=== PATIENT | male | born 2000 | race Caucasian/White ===

== ENCOUNTER 2025-03-04 14:41 | Emergency (ER) | payer OTHER, SELFPAY ==
[2025-03-04 14:55] VITALS: BP 127/73; PULSE 97; RESP 20; TEMP 37.7; O2SAT 97
--- NOTE | 2025-03-04 15:01 | ED.GENADULT ---
HPI - General Adult General Chief complaint: Nausea/Vomiting/Diarrhea Stated complaint: Vomiting/Diarrhea/Fever/Back Pain Time Seen by Provider: 03/04/25 15:04 Source: patient, RN notes reviewed and old records reviewed Mode of arrival: ambulatory Limitations: no limitations History of Present Illness HPI narrative: 25 year old male presents to [facility] care accompanied by mother with complaints of awakening this afternoon and having lower abdominal pain and he had to abruptly vomit. He reports that he has vomited x5 times and has had diarrhea stools X3. He states that he ate at [employer] last night and then went to his job and worked midnight shift.Patient has taken some Pepto Bismol for his symptoms and reports that last incidenc of vomiting was at 132. Patient has diffuse pain across his lower abdomen with some increased pain in right lower quadrant on exam with hyperactive bowel sounds noted in all quadrants. Advised patient that he should go to ED for further evaluation of abdominal pain and refuses to go, states pain is dull and achy and he thinks he just has food poisioning or some gastric bug. Patient did sign papabdiel AMA against going to ED. MD complaint: nausea vomiting and diarrhea and abdominal pain Onset (ago): day(s) (today this afternoon) Location: abdomen Severity scale (1-10): 5 Quality: aching Pain Consistency: intermittent Associated symptoms: fever/chills, malaise, nausea/vomiting and other (diarrhea) Treatments prior to arrival: other (Pepto Bismol) Related Data Allergies Allergy/AdvReac Type Severity Reaction Status Date / Time No Known Allergies Allergy Verified 03/04/25 15:09 Review of Systems Review of Systems: CONSTITUTIONAL: Reports fever, chills, or sweats. EYES: Denies visual changes, redness, or discharge. ENT: Denies rhinorrhea, congestion, sore throat, or otalgia. CARDIOVASCULAR: Denies chest pain, palpitations, or edema. RESPIRATORY: Denies cough or dyspnea. GASTROINTESTINAL: reports diffuse lower abdominal pain,nausea, vomiting, or diarrhea. GENITOURINARY: Denies dysuria or hematuria. SKIN: Denies rash or itching. MUSCULOSKELETAL: Denies back pain, joint pain, or myalgia. NEUROLOGIC: Denies headache, numbness, or weakness. PSYCHIATRIC: Denies anxiety or depression. All systems reviewed & are unremarkable except as noted in HPI and below PMFSH Social History Social History (Updated 03/05/25 @ 22:44 by Terri Green APRN) Smoking status: Never smoker Alcohol intake: current Alcohol use details: social Substance use type: does not use Living arrangements: with family Gender identity (if verbalized by the patient): Male Comments At time of signature, agree with nursing past medical, surgical, social and family history. There is no relevant family history pertinent to the presenting complaint Exam Narrative: GENERAL: Ill-appearing, well-nourished, obese,and in some acute distress. HEAD: Normocephalic, atraumatic. EYES: PERRLA and EOMI. ENT: Nares clear, no rhinorrhea or epistaxis. Mucous membranes moist.TM's normal throat pink without exudates NECK: Supple.no lymphadenopathy CHEST: Clear to auscultation. No respiratory distress.SAO2 97% on room air HEART: Regular rate and rhythm. No murmur heard. Normal peripheral pulses. ABDOMEN: Soft, tender across lower abdomen with some noted increased tenderness to right lower abdomen on examination no rebound, nondistended, hyperactive bowel sounds in all quadrants nause vomiting and diarrhea with some temperature elevation noted. of 37.7C. EXTREMITIES: Normal range of motion. No edema. SKIN: Warm, dry, no rash. NEURO: No focal deficits. Alert and oriented x3. Course Course Level of Care: Express Care Visit Vital Signs Vital signs: Vital Signs Temperature 37.7 C H 03/04/25 14:55 Pulse Rate 97 03/04/25 14:55 Respiratory Rate 20 03/04/25 14:55 Blood Pressure 127/73 03/04/25 14:55 Pulse Oximetry 97 03/04/25 14:55 Oxygen Delivery Room Air 03/04/25 14:55 Temperature 37.7 C H 03/04/25 14:55 Pulse Rate 97 03/04/25 14:55 Respiratory Rate 20 03/04/25 14:55 Blood Pressure 127/73 03/04/25 14:55 Pulse Oximetry 97 03/04/25 14:55 Oxygen Delivery Room Air 03/04/25 14:55 reviewed MDM MDM Narrative Medical decision making narrative: Patient has diffuse lower abdominal pain with some increased tenderness to right lower quadrant patient and mother advised to go to ED for further evaluation and patient refuses to go at this time,did sign AMA paper in regards to recommendation of ED transfer. Will treat with Jd with anticipatory guidance and strict reasons to seek care in ED reviewed with family member and patient with understanding voiced. Patient adament of thought that he has food poisioning or gastric GI virus, states his pain is achy and believes would be more painful if it was his appendix. Differential Diagnosis Differential Diagnosis: Differential diagnostic considerations for acute abdominal pain?include surgical abdominal etiology, ischemic bowel, inflammatory bowel disease, gastritis, PUD, gastroenteritis, cardiac etiology, appendicitis, diverticulitis, bowel obstruction, kidney stone, pyelonephritis, abdominal aortic aneurysm, pancreatitis, constipation, endometriosis. Critical Care Time Critical Care Time Critical Care Time: No Discharge Plan Discharge Clinical Impression: Nausea, vomiting, and diarrhea Abdominal pain Qualifiers: Abdominal location: lower abdomen, unspecified Qualified Code(s): R10.30 - Lower abdominal pain, unspecified Patient Disposition: Home Condition: Stable Instructions: Antibiotic Form, Abdominal Pain (ED) Additional Instructions: Clear liquids for the next 8-10 hours, then advance to a bland diet as tolerated A bland diet can consist of--BRAT diet which is bananas, rice, applesauce, and toast Avoid fried, greasy, fatty, fried foods Avoid caffeine, nicotine, and alcohol Return to your regular diet in the next 3-4 days Medication as directed for nausea and vomiting Sometimes ibuprofen/Aleve can cause increased stomach upset recommend Tylenol for any fevers or pain Follow-up with her PCP if continued problems or uncontrolled pain if any increase in pain go directly to the emergency room recommendation for patient to go to the ED but he refuses he did sign AMA paper in regards Patient Language: Mold[place] Prescriptions: New ondansetron 4 mg tablet,disintegrating 4 mg PO Q6H PRN (Reason: nausea and vomiting) Qty: 20 0RF Rx Instructions: what ever preparation is covered by insurance Follow-up/Referrals: PHYSICIAN,ANALYTICS LEADER [Primary Care Provider, Internal Medicine] Stand Alone Forms: Work/School Release IP Time of Disposition: 15:16 Quality [place] Coma Scale Eyes: Open Verbal: Oriented and Alert Motor: Follows Commands [place] Coma Total Score: 15
--- OUTSIDE RECORDS SUMMARY | 2025-03-04 17:04 | XMS_ITS | Clinical Summary ---
Author Organization [facility] Address [address] [place] [address] Phone Care Team Providers Care Grocery Packer Name Role Phone Provider, None Primary Care Provider Unavailabl e Allergies No known active allergies Medications No known medications Social History Tobacco Use Types Packs/Day Years Used Date Smoking Tobacco: Never Smokeless Tobacco: Never Tobacco Cessation:Counseling Given: Not Answered Alcohol Use Standard Drinks/Week Comments Yes 0 (1 standard drink = 0.6 oz pur e alcohol) Rarely Sex and Gender Information Value Date Recorded Sex Assigned at Not on file Legal Sex Male 8:02 PM CDT Gender Identity Not on file Sexual Orientation Not on file Last Filed Vital Signs Vital Sign Reading Time Taken Comments Blood Pressure 121/76 02/12/2022 11:09 PM SCAFFOLDER Pulse 95 02/12/2022 11:09 PM SCAFFOLDER Temperature 38.3 C (100.9 F) 02/12/2022 11:09 PM SCAFFOLDER Respiratory Rate 20 02/12/2022 11:0 9 PM SCAFFOLDER Oxygen Saturation 98% 02/12/2022 11: 09 PM SCAFFOLDER Inhaled Oxygen Concentration - - Weight 98.4 kg (216 lb 14.9 oz) 022 10:10 PM SCAFFOLDER Height 177.8 cm (5' 10) 02/12/2022 10: 10 PM SCAFFOLDER Body Mass Index 31.13 02/12/2022 10:10 PM SCAFFOLDER Plan of Treatment Not on file Insurance [employer] Care Teams Grocery Packer Relationship Specialty Start Date End Date Provider, None HECTOR PCP - General 02/12/22
== END 2025-03-04 15:20 | disposition home or self-care (01) ==
PROVIDERS: Emergency Provider Registered Nurse
DX: R11.2 Nausea with vomiting, unspecified (principal); R19.7 Diarrhea, unspecified; R10.30 Lower abdominal pain, unspecified
CPT/HCPCS: 99203; G0463